=== PATIENT | male | born 1955 | race Caucasian/White ===

== ENCOUNTER 2017-11-07 17:12 | Emergency (ER) | payer BC, OTHER ==
[~2017-11-07] VITALS: Ht 177.8 cm; Wt 100.0 kg
[~2017-11-07 17:12] MED LIST: ASPI325T PO; DIPH1TAB36 PO; ENOX40P SQ; LORTA5 PO; PREV30CA36 PO; TRAM50TA PO
[2017-11-07 17:18] VITALS: BP 167/86; PULSE 83; RESP 16; TEMP 98; O2SAT 97
[2017-11-07] MEDS ORDERED: ASPI-516 CHEW (17:27)
[2017-11-07] MEDS ORDERED: IBUP1TAB7 PO (17:27)
[2017-11-07] MEDS ORDERED: OMEP20TA93 PO (17:27)
[2017-11-07] MEDS ORDERED: ROBA500T PO (17:52)
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
[2017-11-07] MEDS ORDERED: ORPHENADRINE INJ 60 MG/2 ML AMP IM ONE (18:00)
[2017-11-07] MEDS ORDERED: KETOROLAC TROMETHAMINE 60 MG/2 ML (IM) VIAL IM ONE (18:00)
== END 2017-11-07 18:07 | disposition home or self-care (01) ==
LOC: NEPK 17:12
DX: S46.811A Strain of other muscles, fascia and tendons at shoulder and upper arm level, right arm, initial encounter (principal); S46.812A Strain of other muscles, fascia and tendons at shoulder and upper arm level, left arm, initial encounter; R10.813 Right lower quadrant abdominal tenderness; K21.9 Gastro-esophageal reflux disease without esophagitis; V89.2XXA Person injured in unspecified motor-vehicle accident, traffic, initial encounter
CPT/HCPCS: 96372; 99283; J1885; J2360